=== PATIENT | female | born 1970 | race Caucasian/White ===

== ENCOUNTER 2023-06-25 11:14 | Emergency (ER) | payer MEDICAID ==
[~2023-06-25] VITALS: Ht 172.7 cm; Wt 108.0 kg
[2023-06-25 11:32] VITALS: BP 126/103; PULSE 92; RESP 20; TEMP 98.7; O2SAT 98
== END 2023-06-25 16:34 | disposition left against medical advice (07) ==
LOC: ER 11:14
DX: K59.00 Constipation, unspecified (principal); Z53.21 Procedure and treatment not carried out due to patient leaving prior to being seen by health care provider
CPT/HCPCS: 99281